=== PATIENT | female | born 1925 | race Caucasian/White ===

== ENCOUNTER 2016-10-06 11:16 | Emergency (ER) | payer OTHER ==
[2016-10-06 11:27] VITALS: BP 126/49; PULSE 69; TEMP 97.6; BMI 25.4
--- NOTE | 2016-10-06 11:41 | PDOC ---
History of Present Illness <HarmanJeronimo archer - Last Filed: 10/06/16 14:46> - General History Source: Patient Exam Limitations: No Limitations - History of Present Illness Initial Comments: 10/06/16 11:48 The patient is a 89 year old female, with a significant past medical history of PE, DVT (on eliquis), right breast CA, HTN, HLD, GERD and bowel obstruction s/p bowel resection, who presents to the emergency department with left groin pain for past 3 days. She describes her pain as ranging from mild to moderate, which radiates to her back and down her left lower extremity. She denies any modifying factors, but notes a slight limp when she walks due to the pain. She denies taking any medications for the pain. The patient denies chest pain, shortness of breath, headache and dizziness. Denies fever, chills, nausea, vomit, diarrhea and constipation. Denies dysuria, frequency, urgency and hematuria. Allergies: Penicillin, levofloxavcin Past surgical history: Appendectomy, bowel resection, left knee replacement Social history: No alcohol, tobacco or drug use reported PMD - Dr. Randhawa Surgeon - Dr. Hernandez <RosarioJamesonluiz Pack - Last Filed: 10/06/16 15:13> - General Chief Complaint: Pain Stated Complaint: (PCP SENT) Time Seen by Provider: 10/06/16 11:40 Past History - Past Medical History Anemia: No Asthma: No Cancer: Yes (H/O RIGHT BREAST CA) Cardiac Disorders: No CVA: No COPD: No CHF: No Dementia: No Diabetes: No GI Disorders: Yes (GERD) Disorders: No HTN: Yes Hypercholesterolemia: Yes Liver Disease: No Seizures: No Thyroid Disease: No Other medical history: dvt, pe - Surgical History Abdominal Surgery: Yes (bowel resection) Appendectomy: Yes Cardiac Surgery: No Cholecystectomy: No Lung Surgery: No Neurologic Surgery: No Orthopedic Surgery: Yes (LEFT KNEE REPLACEMENT) - Immunization History Immunization Up to Date: Yes - Psycho/Social/Smoking Cessation Hx Anxiety: No Suicidal Ideation: No Smoking History: Former smoker Have you smoked in the past 12 months: No If you are a former smoker, when did you quit?: 60 years ago Information on smoking cessation initiated: No Hx Alcohol Use: No Drug/Substance Use Hx: No Substance Use Type: None Hx Substance Use Treatment: No <SravanthiJeronimo - Last Filed: 10/06/16 14:46> <Jameson Ponce - Last Filed: 10/06/16 15:13> - Past Medical History Allergies/Adverse Reactions: Allergies Allergy/AdvReac Type Severity Reaction Status Date / Time levofloxacin [From Levaquin] Allergy Itching Verified 10/06/16 11:24 Penicillins Allergy Itching Verified 10/06/16 11:24 Home Medications: Ambulatory Orders Furosemide [Lasix -] 40 mg PO DAILY 07/02/16 L.acidoph,Paracasei, B.lactis [Probiotic] 1 each PO DAILY 07/02/16 Nifedipine [Procardia Xl] 30 mg PO DAILY 07/02/16 Valsartan [Diovan] 320 mg PO DAILY 07/02/16 Acetaminophen W/ Codeine #3 [Tylenol # 3 -] 1 tab PO BID PRN 10/06/16 Apixaban [Eliquis -] 5 mg PO BID 10/06/16 Carvedilol Phosphate [Coreg Cr -] 40 mg PO DAILY 10/06/16 Famotidine 20 mg PO PRN 10/06/16 Ondansetron [Zofran Odt -] 4 mg SL TID #30 od.tablet 10/06/16 Oxycodone HCl/Acetaminophen [Percocet 5-325 mg Tablet] 1 - 2 tab PO Q6H #40 tab MDD 5 10/06/16 Pitavastatin Calcium [Livalo] 1 mg PO ASDIR 10/06/16 Potassium Chloride [Klor-Con 10] 10 meq PO DAILY 10/06/16 Review of Systems - Review of Systems Able to Perform ROS?: Yes Comments:: 10/06/16 11:48 GENERAL/CONSTITUTIONAL: No fever or chills. No weakness. HEAD, EYES, EARS, NOSE AND THROAT: No change in vision. No ear pain or discharge. No sore throat. CARDIOVASCULAR: No chest pain or shortness of breath RESPIRATORY: No cough, wheezing, or hemoptysis. GASTROINTESTINAL: +Left groin pain. No nausea, vomiting, diarrhea or constipation. GENITOURINARY: No dysuria, frequency, or change in urination. MUSCULOSKELETAL: No joint or muscle swelling or pain. No neck or back pain. SKIN: No rash NEUROLOGIC: No headache, vertigo, loss of consciousness, or change in strength/ sensation. ENDOCRINE: No increased thirst. No abnormal weight change HEMATOLOGIC/LYMPHATIC: No anemia, easy bleeding, or history of blood clots. ALLERGIC/IMMUNOLOGIC: No hives or skin allergy. <Jameson Ponce - Last Filed: 10/06/16 15:13> *Physical Exam - Vital Signs Last Vital Signs Temp Pulse Resp BP Pulse Ox 97.6 F 69 18 126/49 100 10/06/16 11:24 10/06/16 11:24 10/06/16 11:24 10/06/16 11:24 10/06/16 11:24 <Jeronimo Fishman - Last Filed: 10/06/16 14:46> - Vital Signs Last Vital Signs Temp Pulse Resp BP Pulse Ox 97.6 F 69 18 126/49 100 10/06/16 11:24 10/06/16 11:24 10/06/16 11:24 10/06/16 11:24 10/06/16 11:24 - Physical Exam Comments: 10/06/16 11:48 GENERAL: Awake, alert, and fully oriented, in no acute distress HEAD: No signs of trauma, normocephalic, atraumatic EYES: PERRLA, EOMI, sclera anicteric, conjunctiva clear ENT: Auricles normal inspection, hearing grossly normal, nares patent, oropharynx clear without exudates. Moist mucosa NECK: Normal ROM, supple, no lymphadenopathy, JVD, or masses LUNGS: No distress, speaks full sentences, clear to auscultation bilaterally HEART: Regular rate and rhythm, normal S1 and S2, no murmurs, rubs or gallops, peripheral pulses normal and equal bilaterally. ABDOMEN: Soft, nontender, normoactive bowel sounds. No guarding, no rebound. No masses EXTREMITIES: Normal inspection, Normal range of motion, no edema. No clubbing or cyanosis. NEUROLOGICAL: Cranial nerves II through XII grossly intact. Normal speech, normal gait, no focal sensorimotor deficits SKIN: Warm, Dry, normal turgor, no rashes or lesions noted. <Jameson Ponce - Last Filed: 10/06/16 15:13> ED Treatment Course - RADIOLOGY Radiograph Interpretation: 10/06/16 14:[address] Reviewed by: Dr. 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 Chronic compression deformity of L1 vertebral body. No interval change in comparison to the CT of the abdomen 06/01/2016. The intraspinal contents cannot be adequately evaluated due ti the beam hardening artifacts. <Jameson Ponce - Last Filed: 10/06/16 15:13> Medical Decision Making - Medical Decision Making 10/06/16 15:12 Dr. Cates was called regarding the patient at 2:55pm Dr. Cates was consulted regarding the patient at 3:10pm [phone] <Jameson Ponce - Last Filed: 10/06/16 15:13> *DC/Admit/Observation/Transfer - Discharge Dispostion Admit: No - Attestations Physician Attestion: 10/06/16 11:41 I, Dr. Jeronimo Fishman, attest that this document has been prepared under my direction and personally reviewed by me in its entirety. I further attest, that it accurately reflects all work, treatment, procedures and medical decision -making performed by me. <Jeronimo Fishman - Last Filed: 10/06/16 14:46> - Attestations Scribe Attestion: 10/06/16 11:49 Documentation prepared by Jameson Ponce, acting as medical assistant instructor for Jeronimo Fishman MD <Jameson Ponce - Last Filed: 10/06/16 15:13> Diagnosis at time of Disposition: Sciatica associated with disorder of lumbosacral spine - Discharge Dispostion Disposition: HOME Condition at time of disposition: Good - Prescriptions Prescriptions: Oxycodone HCl/Acetaminophen [Percocet 5-325 mg Tablet] 1 - 2 tab PO Q6H #40 tab MDD 5 Ondansetron [Zofran Odt -] 4 mg SL TID #30 od.tablet - Referrals Referrals: Valeria Randhawa MD [Primary Care Provider] - - Patient Instructions Printed Discharge Instructions: DI for Sciatica Additional Instructions: Adriana- So sorry this hurts so much. It will pass in a week or two, or at least not be so loud. Do not take the Percocet and the Tylenol III. Ii is one or the other, not both. Zofran is for you to use if you had some stomach problems with the percocet. Return to us if worse or new symptoms develop. Follow up with your doctor next week. There is nothing new on your CT Scan. Isael- Dr. Jeronimo Fishman
[2016-10-06] MEDS ORDERED: ONDANSETRON *ODT* 4 MG TABLET SL ONE (11:51)
[2016-10-06] MEDS ORDERED: OXYCODONE/APAP 5/325MG COMBO TABLET PO ONE (11:51)
[2016-10-06] MEDS ORDERED: OXYCODONE/APAP 5/325MG COMBO TABLET ONE (12:02)
[2016-10-06 16:07] LABS: BASOPHIL 1.1 % (0-2.0); EOSINOPHIL 1.6 % (0-4.5); MCH 30.4 pg (25.7-33.7); MCHC 32.6 g/dl (32.0-36.0); MEAN CELL VOLUME 93.1 fl (80-96); MEAN PLT VOLUME 10.4 fl (7.5-11.1); NEUTROPHILS 64.6 % (42.8-82.8); PLATELET COUNT 191 K/MM3 (134-434); RDW 15.3 % (11.6-15.6)
[2016-10-06 16:23] LABS: INR 1.53 (0.82-1.09)
[2016-10-06 16:26] LABS: URINE APPEARANCE SLCLOUDY; URINE BILIRUBIN NEGATIVE (NEGATIVE); URINE BLOOD NEGATIVE (NEGATIVE); URINE COLOR DKYELLOW; URINE GLUCOSE (UA) NEGATIVE (NEGATIVE); URINE KETONE TRACE (NEGATIVE); URINE NITRITE NEGATIVE (NEGATIVE); URINE PROTEIN NEGATIVE (NEGATIVE); URINE UROBILINOGEN NEGATIVE E.U./dl (0.2-1.0)
[2016-10-06 16:56] LABS: ALBUMIN 3.8 g/dl (3.4-5.0); BILIRUBIN,TOTAL 0.5 mg/dL (0.2-1.0); CALCIUM 9.8 mg/dL (8.5-10.1); CREATININE 1.3 mg/dL (0.55-1.02); TOT PROT 7.7 g/dl (6.4-8.2)
[2016-10-06 17:09] LABS: URINE LEUK ESTERASE 2+ (NEGATIVE)
[2016-10-06 17:11] LABS: URINE BACTERIA RARE /hpf (NONE SEEN); URINE HYALINE CAST 15 /lpf; URINE MUCUS RARE; URINE RBC 1 /hpf (0-3); URINE WBC 51 /hpf (3-5)
== END 2016-10-06 17:21 | disposition home or self-care (01) ==
LOC: JER 11:16
DX: M54.42 Lumbago with sciatica, left side (principal); I10 Essential (primary) hypertension; E78.00 Pure hypercholesterolemia, unspecified; K21.9 Gastro-esophageal reflux disease without esophagitis; Z86.711 Personal history of pulmonary embolism; Z86.718 Personal history of other venous thrombosis and embolism; Z79.01 Long term (current) use of anticoagulants; Z85.3 Personal history of malignant neoplasm of breast
CPT/HCPCS: 36415; 72131-TC; 80053; 81003; 81015; 85025; 85610; 99282-25